=== PATIENT | male | born 1985 | race African-American/Black ===

== ENCOUNTER 2018-01-30 00:19 | Emergency (ER) | payer BC, OTHER ==
[2018-01-30] MEDS ORDERED: Aspirin 81 mg CHEW TAB* 81 MG TAB.CHEW PO ONE (02:53)
[2018-01-30] MEDS ORDERED: ALPRAZolam TAB* 0.5 MG PO ONE (02:54)
[2018-01-30 03:16] LABS: ABS Basophils 0.1 10^3/ul (0-0.2); ABS Eosinophils 0 10^3/ul (0-0.6); ABS Lymphocytes 2.6 10^3/ul (1.0-4.8); ABS Monocytes 0.7 10^3/ul (0-0.8); ABS Neutrophils 4.3 10^3/ul (1.5-7.7); ABS Nucleated RBC 0 10^3/ul; Eosinophil % 0.6 % (0-6); Hematocrit 44 % (42-52); Hemoglobin 15.3 g/dl (14.0-18.0); Lymphocyte % 34.5 % (25-47); Mean Corpuscular HGB Conc 34 g/dl (31-36); Mean Corpuscular Hemoglobin 30 pg (27-31); Mean Corpuscular Volume 87 fL (80-94); Mean Platelet Volume 7.6 um3 (7.4-10.4); Nucleated Red Blood Cells % 0.2; Platelet Count 347 10^3/ul (150-450); Red Blood Count 5.11 10^6/ul (4.00-5.40); Red Cell Distribution Width 14 % (10.5-15); White Blood Count 7.7 10^3/ul (3.5-10.8)
[2018-01-30 04:21] VITALS: BP 137/98
--- NOTE | 2018-01-30 05:42 | ED ---
HPI Cardiac - HPI Summary HPI Summary: Patient is a 32 y/o M w/ c/o palpitations, right sided numbness, tingling in lips and arms, chest pain and RUFFIN. Patient reports previous episodes of such Sx but notes today's episode was the worst. 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 Episode is reported to last twenty minutes. 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 PMHx of cerebral palsy. On triage, pain is denied, calming techniques are noted to alleviate Sx, nothing is noted to aggravate. Home medications and allergies are reviewed. - History of Current Complaint Chief Complaint: EDDysrhythmPalp Stated Complaint: DIZZINESS/RT SIDE NUMBNESS Time Seen by Provider: 01/30/18 02:38 Hx Obtained From: Patient Onset/Duration: Started Hours Ago - a couple of hours ago, Resolved Timing: Intermittent, Lasting Minutes - episode lasted 20 minuets Current Severity: None Pain Intensity: 0 Pain Scale Used: 0-10 Numeric - 0/10 Aggravating Factor(s): Nothing Alleviating Factor(s): Nothing Associated Signs and Symptoms: Positive: Chest Pain, Headaches, Numbness - right sided, Tingling - lips and arms, Palpitations - Allergy/Home Medications Allergies/Adverse Reactions: Allergies Allergy/AdvReac Type Severity Reaction Status Date / Time No Known Allergies Allergy Verified 01/30/18 00:24 Home Medications: Home Medications Aspirin 81 mg CHEW TAB* [Aspirin Low Dose TAB*] 81 mg PO DAILY 01/30/18 [ History Confirmed 01/30/18] PMH/Surg Hx/FS Hx/Imm Hx Sensory History: Denies: Hx Legally Blind, Hx Deafness Opthamlomology History: Denies: Hx Legally Blind EENT History: Denies: Hx Deafness Infectious Disease History: No Infectious Disease History: Denies: Traveled Outside the [place] in Last 30 Days - Family History Known Family History: Negative: Blood Disorder - Social History Alcohol Use: None Substance Use Type: Reports: None Smoking Status (MU): Never Smoked Tobacco Review of Systems Positive: Palpitations, Chest Pain Neurological: Other - tingling in lips and arms Positive: Headache, Numbness - right sided All Other Systems Reviewed And Are Negative: Yes Physical Exam - Summary Physical Exam Summary: VITAL SIGNS: Reviewed. GENERAL: Patient is a well-developed and nourished male who is lying comfortable in the stretcher. Patient is not in any acute respiratory distress. HEAD AND FACE: No signs of trauma. No ecchymosis, hematomas or skull depressions. No sinus tenderness. EYES: PERRLA, EOMI x 2, No injected conjunctiva, no nystagmus. EARS: Hearing grossly intact. Ear canals and tympanic membranes are within normal limits. MOUTH: Oropharynx within normal limits. NECK: Supple, trachea is midline, no adenopathy, no JVD, no carotid bruit, no c- spine tenderness, neck with full ROM. CHEST: Symmetric, no tenderness at palpation LUNGS: Clear to auscultation bilaterally. No wheezing or crackles. CVS: Regular rate and rhythm, S1 and S2 present, no murmurs or gallops appreciated. ABDOMEN: Soft, non-tender. No signs of distention. No rebound no guarding, and no masses palpated. Bowel sounds are normal. EXTREMITIES: FROM in all major joints, no edema, no cyanosis or clubbing. NEURO: Alert and oriented x 3. No acute neurological deficits. Speech is normal and follows commands. SKIN: Dry and warm Triage Information Reviewed: Yes Vital Signs On Initial Exam: Initial Vitals Temp Pulse Resp BP Pulse Ox 98.9 F 97 20 158/99 97 01/30/18 00:20 01/30/18 00:20 01/30/18 00:20 01/30/18 00:20 01/30/18 00:20 Vital Signs Reviewed: Yes Diagnostics - Vital Signs Vital Signs Temp Pulse Resp BP Pulse Ox 01/30/18 04:54 97.6 F 87 20 137/98 98 01/30/18 04:36 87 137/98 95 01/30/18 04:11 88 137/98 97 01/30/18 04:00 89 95 01/30/18 03:13 86 158/93 98 01/30/18 03:11 87 98 01/30/18 03:01 20 01/30/18 00:20 98.9 F 97 20 158/99 97 - Laboratory Lab Results: Lab Results 01/30/18 01/30/18 Range/Units 03:07 03:07 WBC 7.7 (3.5-10.8) 10^3/ul RBC 5.11 (4.00-5.40) 10^6/ul Hgb 15.3 (14.0-18.0) g/dl Hct 44 (42-52) % MCV 87 (80-94) fL MCH 30 (27-31) pg MCHC 34 (31-36) g/dl RDW 14 (10.5-15) % Plt Count 347 (150-450) 10^3/ul MPV 7.6 (7.4-10.4) um3 Neut % (Auto) 55.6 (38-83) % Lymph % (Auto) 34.5 (25-47) % Pickett % (Auto) 8.5 H (0-7) % Eos % (Auto) 0.6 (0-6) % Baso % (Auto) 0.8 (0-2) % Absolute Neuts (auto) 4.3 (1.5-7.7) 10^3/ul Absolute Lymphs (auto) 2.6 (1.0-4.8) 10^3/ul Absolute Monos (auto) 0.7 (0-0.8) 10^3/ul Absolute Eos (auto) 0 (0-0.6) 10^3/ul Absolute Basos (auto) 0.1 (0-0.2) 10^3/ul Absolute Nucleated RBC 0 10^3/ul Nucleated RBC % 0.2 Sodium 139 (135-145) mmol/L Potassium 4.3 (3.5-5.0) mmol/L Chloride 99 L (101-111) mmol/L Carbon Dioxide 30 (22-32) mmol/L Anion Gap 10 (2-11) mmol/L BUN 10 (6-24) mg/dL Creatinine 1.16 (0.67-1.17) mg/dL Est GFR ( Amer) 88.3 (>60) Est GFR (Non-Af Amer) 73.0 (>60) BUN/Creatinine Ratio 8.6 (8-20) Glucose 93 (70-100) mg/dL Calcium 9.5 (8.6-10.3) mg/dL Magnesium 2.0 (1.9-2.7) mg/dL Total Bilirubin 0.90 (0.2-1.0) mg/dL AST 46 H (13-39) U/L ALT 70 H (7-52) U/L Alkaline Phosphatase 68 (34-104) U/L Total Creatine Kinase 620 H (10-223) U/L Troponin I 0.00 (<0.04) ng/mL Total Protein 7.5 (6.4-8.9) g/dL Albumin 4.3 (3.2-5.2) g/dL Globulin 3.2 (2-4) g/dL Albumin/Globulin Ratio 1.3 (1-3) TSH 1.60 (0.34-5.60) mcIU/mL Result Diagrams: 01/30/18 03:07 01/30/18 03:07 Lab Statement: Any lab studies that have been ordered have been reviewed, and results considered in the medical decision making process. - EKG 0032 Cardiac Rate: Tachycardia - rate of 100 bpm EKG Rhythm: Sinus Tachycardia EKG Interpretation: Normal axis. Normal interval. No ischemic changes Re-Evaluation - Re-Evaluation First Eval Re-Evaluation Time: 04:26 Comment: Results of EKG and labs were discussed with patient, he will be discharged to home and instructed to follow up with PCP. Patient is agreeable with this plan. Disposition - Course Course Of Treatment: Patient is a 32 y/o M w/ c/o palpitations, right sided numbness, tingling in lips and arms, chest pain and RUFFIN. Patient reports previous episodes of such Sx but notes today's episode was the worst. 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 Episode is reported to last twenty minutes. 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 PMHx of cerebral palsy. Physical exam was normal. During ED course, patient received Xanax 0.5 mg PO ONCE, ASA 162 mg PO ONCE. Labs showed TSH 1.6, trop 0, Total creatine kinase 620, ALT 70, AST 46. EKG showed sinus tachycardia w/ 100 BPM normal Normal axis. Normal interval. No ischemic changes. Results of EKG and labs were discussed with patient, he will be discharged to home and instructed to follow up with PCP. Patient is agreeable with this plan. Dx of palpitations, rhabdomyolysis. - Diagnoses Provider Diagnoses: Palpitations, Rhabdomyolysis Discharge - Sign-Out/Discharge Documenting (check all that apply): Patient Departure - discharge - Discharge Plan Condition: Stable Disposition: HOME Prescriptions: ALPRAZolam TAB* [Xanax TAB*] 0.5 mg PO BID PRN #10 tab MDD 2 PRN Reason: Anxiety Patient Education Materials: Heart Palpitations (ED), Rhabdomyolysis (ED) Referrals: [facility] [Outside] - 2 Days Additional Instructions: RETURN TO THE EMERGENCY DEPARTMENT FOR CHANGING OR WORSENING SYMPTOMS. FOLLOW UP WITH PRIMARY CARE PHYSICIAN IN 1-2 DAYS. - Attestation Statements Document Initiated by Scribe: Yes Documenting Scribe: Luke Lee Provider For Whom Scribe is Documenting (Include Credential): Eva Mcmullen MD Scribe Attestation: ILuke , scribed for Eva Mcmullen MD on 01/30/18 at 0620.
== END 2018-01-30 04:55 | disposition home or self-care (01) ==
LOC: ED 00:19
DX: R00.2 Palpitations (principal); M62.82 Rhabdomyolysis; Z79.82 Long term (current) use of aspirin
CPT/HCPCS: 36415; 80053; 82550; 83735; 84443; 84484; 85025; 86703; 93005; 99282; A9270-GY

== ENCOUNTER 2018-08-24 21:27 | Emergency (ER) | payer BC ==
[2018-08-24 21:41] VITALS: BP 177/72
[2018-08-24] MEDS ORDERED: Fluorescein Sodium TOPICAL* 1 MG TEST STRIP OPHTHALMIC ONE (21:44)
[2018-08-24] MEDS ORDERED: Tetracaine 0.5% OPTH.SOL 4 ML* 1 DROP BTL RIGHT EYE ONE (21:45)
[2018-08-24] MEDS ORDERED: Ciprofloxacin 0.3% OPTH.SOL* BTL RIGHT EYE ONE (22:01)
--- NOTE | 2018-08-24 22:03 | UC ---
Eye Complaint HPI - HPI Summary HPI Summary: 33 yo male with right eye pain and photophobia since this AM Tearing not a contact lens wearer - History of Current Complaint Chief Complaint: UCEye Stated Complaint: EYE COMPLAINT Time Seen by Provider: 08/24/18 21:29 Hx Obtained From: Patient Onset/Duration: Sudden Onset Timing: Constant Severity Initially: Moderate Severity Currently: Moderate Pain Intensity: 6 Pain Scale Used: 0-10 Numeric Location of Injury: Conjunctiva Associated Signs And Symptoms: Positive: Photophobia, Drainage (Clear) Eyes: 1 - flourescein uptake - Allergies/Home Medications Allergies/Adverse Reactions: Allergies Allergy/AdvReac Type Severity Reaction Status Date / Time No Known Allergies Allergy Verified 08/24/18 21:41 Home Medications: Home Medications NK [No Home Medications Reported] 08/24/18 [History Confirmed 08/24/18] PMH/Surg Hx/FS Hx/Imm Hx Previously Healthy: Yes - Surgical History Surgical History: None - Family History Known Family History: Positive: Cardiac Disease, Hypertension, Diabetes Negative: Blood Disorder - Social History Alcohol Use: Rare Substance Use Type: None Smoking Status (MU): Never Smoked Tobacco Review of Systems All Other Systems Reviewed And Are Negative: Yes Constitutional: Positive: Negative Skin: Positive: Negative Eyes: Positive: Eye Redness, Photophobia ENT: Positive: Negative Respiratory: Positive: Negative Cardiovascular: Positive: Negative Gastrointestinal: Positive: Negative Genitourinary: Positive: Negative Motor: Positive: Negative Neurovascular: Positive: Negative Musculoskeletal: Positive: Negative Neurological: Positive: Negative Psychological: Positive: Negative Physical Exam Triage Information Reviewed: Yes Appearance: Well-Appearing, No Pain Distress, Well-Nourished Vital Signs: Initial Vital Signs Temp 97.3 F 08/24/18 21:32 Pulse 110 08/24/18 21:32 Resp 20 08/24/18 21:32 BP 177/72 08/24/18 21:32 Pulse Ox 95 08/24/18 21:32 Vital Signs Reviewed: Yes Eyes: Positive: Conjunctiva Inflamed - R, Other: - no fb noted but dye uptake 9see image). Negative: Discharge ENT: Positive: Hearing grossly normal. Negative: Nasal congestion, Nasal drainage, Trismus, Muffled voice, Hoarse voice Neck: Positive: Supple, Nontender Respiratory: Positive: Lungs clear, Normal breath sounds, No respiratory distress Cardiovascular: Positive: RRR, No Murmur Musculoskeletal: Positive: No Edema Neurological: Positive: Alert Psychological Exam: Normal Skin Exam: Normal Eye Complaint Course/Dx - Differential Dx/Diagnosis Provider Diagnosis: Corneal ulcer of right eye, Elevated BP without diagnosis of hypertension Discharge - Sign-Out/Discharge Documenting (check all that apply): Patient Departure All imaging exams completed and their final reports reviewed: No Studies - Discharge Plan Condition: Stable Disposition: HOME Patient Education Materials: Corneal Ulcer (ED) Referrals: Buddy Tejeda MD [Medical Doctor] - 1 Day (They open at 8AM) Additional Instructions: use cipro eye drops as directed call Dr. Tejeda's at 8AM to make an appt to be seen tell them you were seen here and have what I think is a corneal ulcer you also need to find a primary care doctor to follow you and check your BP - Billing Disposition and Condition Condition: STABLE Disposition: Home
== END 2018-08-24 22:15 | disposition home or self-care (01) ==
LOC: UCEAST 21:27
DX: H16.001 Unspecified corneal ulcer, right eye (principal); R03.0 Elevated blood-pressure reading, without diagnosis of hypertension; Z82.49 Family history of ischemic heart disease and other diseases of the circulatory system; Z83.3 Family history of diabetes mellitus
CPT/HCPCS: 99212; A9270-GY; G0463